=== PATIENT | male | born 1980 | race Two or more races ===

== ENCOUNTER 2021-11-13 09:55 | Emergency (ER) | payer OTHER ==
[~2021-11-13] VITALS: Ht 167.6 cm; Wt 80.0 kg
[2021-11-13] MEDS ORDERED: ONDANSETRON PF 4 MG/2 ML VIAL. ONE (10:13)
[2021-11-13] MEDS ORDERED: ONDANSETRON PF 4 MG/2 ML VIAL. IVP ONE (10:30)
--- NOTE | 2021-11-13 10:41 | RAD ---
Site ID: [id number] EXAMINATION: XR CHEST 1V. HISTORY: 45 years Male Reason: fall off ladder . COMPARISON: None. Findings: The lungs are clear. The heart size is normal. There is no effusion or pneumothorax. The mediastinum and hardy appear unremarkable. Impression: Unremarkable study. Electronically signed by: Chaz Sam MD (11/13/2021 10:38 AM) [id number]
--- NOTE | 2021-11-13 10:43 | RAD ---
Site ID: [id number] EXAMINATION: XR HUMERUS_LT 2 VIEWS. HISTORY: 45 years Male Reason: fall off ladder / COMPARISON: None. FINDINGS: There is a an oblique catheter fracture in the midshaft of the left humerus with mild displacement. T here is a minimal angulation. The proximal and distal joints appear grossly unremarkable. No radiopaq ue foreign body IMPRESSION: Mildly displaced and minimally angulated mid shaft left humerus fracture. Electronically signed by: Chaz Sam MD (11/13/2021 10:41 AM) [id number]
--- NOTE | 2021-11-13 10:47 | PHYS DOC ---
Adult General Chief Complaint Chief Complaint: MECHANICAL FALL HPI HPI Patient is a 41yo male presenting via POV for a fall. States this occurred just prior to arrival. He is nepali speaking only, basic HPI obtained by myself and later confirmed via radiation / chemistry technician. He was on a ladder ~5 ft off the ground when the wind blew him off balance and off the ladder. He fell on he left side and felt a crunch of his left humerus. Admits he did not hit head or neck, braced himself for fall and primary site of impact was left upper arm. He has no medical issues, takes no medications on a daily basis. On arrival, he reports sharp focal pain to left upper arm without radiation, there is pain with ROM but no changes in motor, sensory or neuro function Review of Systems Review of Systems Fourteen body systems of review of systems have been reviewed. See HPI for pertinent positives and negative responses, other benites all other systems are negative, non-pertinent or non-contributory Current Medications Current Medications Current Medications Medications (Trade) Dose Ordered Sig/Kristine Start Time Stop Time Status Last Admin Dose Admin Fentanyl Citrate (Fentanyl 2ml Vial) 50 mcg 1X ONCE 11/13/21 10:30 11/13/21 10:31 DC Ondansetron HCl (Zofran) 4 mg 1X ONCE 11/13/21 10:30 11/13/21 10:31 DC Allergies Allergies Allergies Coded Allergies Type Severity Reaction Last Updated Verified No Known Drug Allergies 11/13/21 No Physical Exam Physical Exam Constitutional: Well developed, well nourished, no acute distress, non-toxic appearance. HENT: Normocephalic, atraumatic, bilateral external ears normal, oropharynx moist, no oral exudates, nose normal. Eyes: PERRLA, EOMI, conjunctiva normal, no discharge. Neck: Normal range of motion, no tenderness, supple, no stridor. No midline tenderness Cardiovascular: Heart rate regular, sinus rhythm, no murmurs rubs or gallops Lungs & Thorax: Bilateral breath sounds clear to auscultation Abdomen: Bowel sounds normal, soft, no tenderness, no masses, no pulsatile masses. Nonsurgical abdomen, no peritoneal signs Skin: Warm, dry, no erythema, no rash. Back: No midline tenderness, no CVA tenderness. Extremities: Tenderness with visual and palpable abnormality to midshaft of LUE, no cyanosis, no clubbing, no edema. Neurologic: Alert and oriented X 3, medial/radial/ulnar nerves of LUE intact, no saddle anesthesia or loss of bladder/bowel control, normal motor & sensory function, no focal deficits noted. Psychologic: Affect normal, judgement normal, mood normal. EKG EKG [] Radiology/Procedures Radiology/Procedures EXAMINATION: XR CHEST 1V. HISTORY: 45 years Male Reason: fall off ladder . COMPARISON: None. Findings: The lungs are clear. The heart size is normal. There is no effusion or pneumothorax. The mediastinum and hardy appear unremarkable. Impression: Unremarkable study. Electronically signed by: Chaz Sam MD (11/13/2021 10:38 AM) [id number] ////////////// EXAMINATION: XR HUMERUS_LT 2 VIEWS. HISTORY: 45 years Male Reason: fall off ladder / COMPARISON: None. FINDINGS: There is a an oblique catheter fracture in the midshaft of the left humerus with mild displacement. There is a minimal angulation. The proximal and distal joints appear grossly unremarkable. No radiopaque foreign body IMPRESSION: Mildly displaced and minimally angulated mid shaft left humerus fracture. Electronically signed by: Chaz Sam MD (11/13/2021 10:41 AM) [id number] Heart Score C/O Chest Pain: No Risk Factors: Risk Factors: DM, Current or recent (<one month) smoker, HTN, HLP, family history of CAD, obesity. Risk Scores: Risk Factors: DM, Current or recent (<one month) smoker, HTN, HLP, family history of CAD, obesity. Course & Med Decision Making Course & Med Decision Making Primary and secondary survey performed concerning for LUE abnormality only without other obvious trauma in patient who is not on blood thinners and did not hit head or neck ER workup discussed, patinet deferring CT head/neck and pelvis given no pain. Radiographs of chest and LUE concerning for mid-shaft humerus fracture [facility] surgeon contacted and case discussed, recommendations for sling, pain control and close outpatient follow-up advised Product Manager used to confirm HPI, review entirety of ER workup, and discuss diagnosis and recommendations. Patient lives in and wants to see ortho nearer his home which is understandable. CD of images given to patient in addition to narcotic RX after extensive counseling. Strict return precautions discussed and understanding verified by radiation / chemistry technician prior to ER departure Chalino Disclaimer [facility] Disclaimer This electronic medical record was generated, in whole or in part, using a voice recognition dictation system. Departure Departure: Impression: Primary Impression: Closed left humeral fracture Disposition: HOME / SELF CARE / HOMELESS Condition: STABLE Referrals: PCP,NO (PCP) DESIREE WANG Jr. DO Patient Instructions: Humerus Fracture, Treated with Immobilization Additional Instructions: You were seen for a fracture or broken bone of your left humerus. We spoke with the orthopedic doctors who need to see you in the orthopedic clinic. Their in formation is attached to your discharge packet. If you were provided a splint use this as directed. You should not use the affected body part until you follow up with orthopedics. Keep the area clean, dry, and avoid getting it wet. You should use ice, NSAIDs, Tylenol, and elevation to help with swelling and pain. You were also prescribed narcotic pain medication that should be reserved and used for severe pain only when prior methods of pain control do not provide significant relief. Return to the ED if you develop worsening pain, numbness, tingling, weakness, fever, redness, or any other new or concerning symptoms. Scripts Hydrocodone Bit/Acetaminophen (HYDROCODONE-APAP 7.5-325 ) 1 Each Tablet 1 TAB PO PRN Q6HRS PRN for PAIN, #30 TAB 0 Refills Prov: PAUL COUCH DO 11/13/21 PAUL COUCH DO Nov 13, 2021 10:47
[2021-11-13] MEDS ORDERED: HYDR-2765 PO (11:32)
[2021-11-13 12:00] VITALS: BP 118/74
== END 2021-11-13 12:01 | disposition home or self-care (01) ==
LOC: ER 09:55 → EDBD 09:55 → ER 12:01
DX: S42.302A Unspecified fracture of shaft of humerus, left arm, initial encounter for closed fracture (principal); W11.XXXA Fall on and from ladder, initial encounter; Y93.89 Activity, other specified; Y92.89 Other specified places as the place of occurrence of the external cause; Y99.8 Other external cause status
CPT/HCPCS: 71045; 73060; 96374; 96375; 99284; J2405; J3010